=== PATIENT | female | born 1955 | race Caucasian/White ===

== ENCOUNTER 2017-10-26 15:38 | Emergency (ER) | payer BC, MEDICARE ==
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
--- NOTE | 2017-10-26 17:18 | RAD ---
HISTORY: Abdominal pain COMPARISONS: None VIEWS: 2: Frontal and lateral views of the chest. FINDINGS: CARDIOMEDIASTINAL SILHOUETTE: The cardiomediastinal silhouette is normal. CHARU: The charu are normal. PLEURA: The costophrenic angles are sharp. No pleural abnormalities are noted. LUNG PARENCHYMA: The lungs are clear. ABDOMEN: The upper abdomen is clear. There is no subphrenic gas. BONES AND SOFT TISSUES: Mild degenerative changes are noted. OTHER: None. IMPRESSION: NO ACTIVE CARDIOPULMONARY DISEASE.
--- NOTE | 2017-10-26 17:18 | RAD ---
HISTORY: Abdominal pain COMPARISONS: None VIEWS: Frontal views of the abdomen. FINDINGS: BOWEL: There is a nonobstructive bowel gas pattern. There is a large amount of stool within the colon. CALCULI: There are no abnormal calculi. BONES AND SOFT TISSUES: Mild degenerative changes are noted. OTHER FINDINGS: The lung bases are clear. There is no subphrenic gas. IMPRESSION: NONOBSTRUCTIVE BOWEL GAS PATTERN. LARGE AMOUNT OF STOOL WITHIN THE COLON.
--- NOTE | 2017-10-26 17:51 | RAD ---
CLINICAL HISTORY: Incarcerated umbilical and ventral hernia COMPARISON: Mammogram dated March 05, 2017, breast ultrasound dated March 24, 2017 TECHNIQUE: Multiple contiguous axial CT scans were obtained of the abdomen and pelvis, without intravenous contrast enhancement. Coronal and sagittal multiplanar reformations are submitted for review. Oral contrast was not administered. FINDINGS: The study is limited by the lack of intravenous contrast. This limits evaluation of the solid organs and vasculature. LUNG BASES: The lung bases are clear. LIVER: The liver is diffusely low in attenuation compared to the spleen. There are no focal hepatic parenchymal masses. BILE DUCTS: There is no intrahepatic or extrahepatic biliary dilatation. GALLBLADDER: There is a questionable 0.5 cm polyp of the fundus of the gallbladder. There is no pericholecystic inflammatory change. PANCREAS: The pancreas is normal, without mass or ductal dilatation. SPLEEN: Normal in size and appearance. UPPER GI TRACT: Evaluation of the gastrointestinal tract is limited by incomplete gastric distention. The upper GI tract is unremarkable. SMALL BOWEL AND MESENTERY: The small bowel is normal in contour, course, and caliber. There is no obstruction or dilatation. COLON: The colon is normal in contour, course, caliber. There is no pericolonic inflammatory change. ADRENALS: Normal bilaterally. KIDNEYS: The kidneys are normal in shape, size, contour, and axis. There is no hydronephrosis or nephrolithiasis. BLADDER: The bladder is incompletely distended but is grossly normal. PELVIC ORGANS: The uterus and adnexa are grossly normal for technique. AORTA: The aorta is normal. IVC: Unremarkable LYMPH NODES: There is no lymphadenopathy by size criteria. ABDOMINAL WALL: There is a large bilobed fat-containing umbilical hernia. There is mild inflammatory change surrounding the hernia sac. BONES AND SOFT TISSUES: Degenerative changes are noted of the spine and hips. There is a nodular density of the left breast that appears to correspond to the previously characterized cyst on the prior breast imaging. OTHER: None IMPRESSION: 1. LARGE BILOBED FAT-CONTAINING UMBILICAL HERNIA. 2. FATTY INFILTRATION OF LIVER. 3. QUESTIONABLE 0.5 CM GALLBLADDER WALL POLYP. RECOMMEND CORRELATION WITH DEDICATED IMAGING OF THE GALLBLADDER IN THE NONACUTE SETTING.
[2017-10-26 19:36] VITALS: BP 161/72
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
== END 2017-10-26 19:10 | disposition home or self-care (01) ==
LOC: ED 15:38
DX: S80.02XA Contusion of left knee, initial encounter (principal); K42.9 Umbilical hernia without obstruction or gangrene; V89.2XXA Person injured in unspecified motor-vehicle accident, traffic, initial encounter; I10 Essential (primary) hypertension; J45.909 Unspecified asthma, uncomplicated
CPT/HCPCS: 71046; 74019; 74176; 99282

== ENCOUNTER 2018-03-12 16:18 | Emergency (ER) | payer MEDICARE, BC ==
[2018-03-12 16:29] VITALS: BP 169/60
--- NOTE | 2018-03-12 16:48 | ED ---
Skin Complaint - HPI Summary HPI Summary: 62 y/o female presents to the urgent care c/o B/L forearms and left lower leg w / an itchy rash s/p getting into some weeds about 1 week ago. Pt states she has taking Benadryl PO and applied Hidrocortisone 1% topical cream to alleviate symptoms w/o any improvement. Pt states itchiness is worse today. Pt denies pain, fever, SOB, chest pain, throat tightening, abdominal pain, N/V/D. Pt also states she had a tick bite about 1 week ago in her RT lower leg, she remove it immediately and was not engorged. Now area has a little bit of redness and she thinks it is getting infected. - History of Current Complaint Chief Complaint: UCRash Time Seen by Provider: 03/12/18 16:38 Stated Complaint: SKIN RASH Hx Obtained From: Patient Onset/Duration: Started Weeks Ago, Still Present Skin Exposure Onset/Duration: Weeks Ago Timing: Constant Onset Severity: Moderate Current Severity: Moderate Pain Intensity: 0 Pain Scale Used: 0-10 Numeric Skin Location: Discrete - B/L fore arms, Leg - left lower leg rash like streaks , and RT lower leg tick bite Character: Pruritus, Hives, Redness Aggravating Symptom(s): Touch Alleviating Symptom(s): OTC Meds, Antihistamines Associated Signs & Symptoms: Rash Related History: Possible Reaction to: Insect - tick bite, Possible Reaction to : Environmental Exposure - weeds - Allergy/Home Medications Allergies/Adverse Reactions: Allergies Allergy/AdvReac Type Severity Reaction Status Date / Time acetaminophen [From Tylenol] Allergy Hives Verified 03/12/18 16:30 Opioids - Morphine Analogues Allergy Hives Verified 03/12/18 16:30 Opioids-Meperidine and Allergy Hives Verified 03/12/18 16:30 Related Opioids-Methadone and Related Allergy Hives Verified 03/12/18 16:30 Home Medications: Home Medications Levalbuterol 0.63MG/3ML NEB* [Xopenex 0.63MG/3ML NEB*] 1 dose INH Q6HR 03/12/18 [History Confirmed 03/12/18] PMH/Surg Hx/FS Hx/Imm Hx Previously Healthy: Yes Endocrine/Hematology History: Reports: Hx Diabetes Cardiovascular History: Reports: Hx Hypertension Respiratory History: Reports: Hx Asthma GI History: Denies: Hx Cirrhosis, Hx Ulcer - Surgical History Surgery Procedure, Year, and Place: Right ankle. TONSILECTOMY. RIGHT KNEE. LEFT ANKLE. TUBAL LIGATION. RIGHT ELBOW Infectious Disease History: No Infectious Disease History: Denies: Hx Clostridium Difficile, Hx Hepatitis, Hx Human Immunodeficiency Virus (HIV), Hx of Known/Suspected MRSA, Hx Shingles, Hx Tuberculosis, Hx Known/ Suspected VRE, Hx Known/Suspected VRSA, History Other Infectious Disease, Traveled Outside the [place] in Last 30 Days - Family History Known Family History: Positive: Cardiac Disease, Hypertension Family History: cancer - Social History Occupation: Retired Lives: With Family Alcohol Use: Rare Substance Use Type: Reports: None Smoking Status (MU): Never Smoked Tobacco Have You Smoked in the Last Year: No Review of Systems Constitutional: Negative Eyes: Negative ENT: Negative Cardiovascular: Negative Respiratory: Negative Gastrointestinal: Negative Genitourinary: Negative Musculoskeletal: Negative Positive: Rash - B/L forearms and left lower leg w/ itchy rash and RT lower leg w/ a tick bite Neurological: Negative Psychological: Normal All Other Systems Reviewed And Are Negative: Yes Physical Exam - Summary Physical Exam Summary: Vital Signs Reviewed: Yes General: well developed, well nourished obese female sitting in the examining table w/o any apparent distress. Eyes: Positive: Conjunctiva Clear - PERRLA, EOMI ENT: Positive: Normal ENT inspection, Hearing grossly normal, Pharynx normal, TMs normal Neck: Positive: Supple, Nontender, No Lymphadenopathy Respiratory: Positive: Chest nontender, Lungs clear, Normal breath sounds Cardiovascular: Positive: RRR, No Murmur, Pulses Normal Abdomen Description: Positive: Nontender, No Organomegaly, Soft. Negative: CVA Tenderness (R), CVA Tenderness (L) Bowel Sounds: Positive: Present Musculoskeletal: Positive: Strength Intact, ROM Intact, No Edema Neurological Exam: Normal Psychological Exam: Normal Skin: Positive: rashes - B/L forearms and left lower leg w/ scattered erythematous blisters and vesicles, particularly in linear streaks w/ mild signs of excoriation, no drainage observed, non tender to palpation. Distal medial aspect of RT lower leg w/ tick bite with surrounding erythema, non tender to palpation. tick no longer present, mild swelling, no drainage observed. Triage Information Reviewed: Yes Vital Signs On Initial Exam: Initial Vitals Temp Pulse Resp BP Pulse Ox 97.5 F 89 18 169/60 97 03/12/18 16:26 03/12/18 16:26 03/12/18 16:26 03/12/18 16:26 03/12/18 16:26 Diagnostics - Vital Signs Vital Signs Temp Pulse Resp BP Pulse Ox 03/12/18 16:26 97.5 F 89 18 169/60 97 - Laboratory Lab Statement: Any lab studies that have been ordered have been reviewed, and results considered in the medical decision making process. Course/Dx - Course Course Of Treatment: 62 y/o female presents to the urgent care c/o B/L forearms and left lower leg w/ an itchy rash s/p getting into some weeds about 1 week ago. Pt states she has taking Benadryl PO and applied Hidrocortisone 1% topical cream to alleviate symptoms w/o any improvement. Pt states itchiness is worse today. Pt denies pain, fever, SOB, chest pain, throat tightening, abdominal pain, N/V/D. Pt also states she had a tick bite about 1 week ago in her RT lower leg, she remove it immediately and was not engorged. Now area has a little bit of redness and she thinks it is getting infected. Hx obtained. Pt w / B/L forearms and left lower leg w/ scattered erythematous blisters and vesicles, particularly in linear streaks w/ mild signs of excoriation, no drainage observed, non tender to palpation. Distal medial aspect of RT lower leg w/ tick bite with surrounding erythema, non tender to palpation. tick no longer present, mild swelling on examination. Pt most likely w/ Posion mariya dermatitis and a tick bite getting infected. Pt given at the clinic Prednisone PO first dose. Pt Rx Prednisone PO, Clobetasol topical cream to alleviate poison mariya dermatitis. Also Rx Bacitracin to apply over the tick bite area. PT advised to continue w/ Benadryl PO for pruritus . Pt advised if not improvement or worsening of symptoms to return to the clinic or f/u with PCP for further treatment.Pt's BP is elevated today advised to decrease salt in diet, monitor BP and f/u with PCP for further management. PT understood and agreed with D/C instructions - Differential Diagnoses - Skin Complaint Differential Diagnoses: Abscess, Cellulitis, Local Allergic Reaction, MRSA, Poison Mariya, Poison [place] - Diagnoses Provider Diagnoses: Poison mariya dermatitis, Tick bite, Uncontrolled hypertension Discharge - Sign-Out/Discharge Documenting (check all that apply): Discharge/Admit/Transfer - D/C home - Discharge Plan Condition: Stable Disposition: HOME Prescriptions: Bacitracin OINTMENT* 1 applic TOPICAL BID #1 tube Clobetasol Propionate/Emoll [Clobetasol Propionate Emo] 0.05 % EX BID #1 cre predniSONE TAB* [Deltasone 20 MG TAB*] 20 mg PO DAILY #8 tab Patient Education Materials: Poison Mariya (ED), Low-Sodium Diet (ED) Referrals: Gianna Crocker MD [Primary Care Provider] - 3 Days Lucita Tapia [Medical Doctor] - If Needed Additional Instructions: 1-Please take Prednisone PO as directed starting tomorrow to alleviate symptoms. first dose given today 2-Please apply Clobetasone Topical medication as directed to alleviate rash and itchiness. 3- Continue taking Benadryl PO to alleviate itchiness 4-If symptoms do not improve or worsen please f/u with your PCP or [facility] for further evaluation and treatment. 5-Your BP is elevated today. please decrease salt in your diet, monitor BP and if it continues to be elevated please f/u with your PCP for further management - Billing Disposition and Condition Condition: STABLE Disposition: Home
[2018-03-12] MEDS ORDERED: predniSONE TAB* 20 MG PO ONE (16:50)
== END 2018-03-12 17:20 | disposition home or self-care (01) ==
LOC: UCEAST 16:18
DX: L23.7 Allergic contact dermatitis due to plants, except food (principal); I10 Essential (primary) hypertension; E11.9 Type 2 diabetes mellitus without complications; J45.909 Unspecified asthma, uncomplicated; Z88.6 Allergy status to analgesic agent; Z88.5 Allergy status to narcotic agent; Z82.49 Family history of ischemic heart disease and other diseases of the circulatory system; Z80.9 Family history of malignant neoplasm, unspecified
CPT/HCPCS: 99212; G0463; J7512

== ENCOUNTER 2018-07-10 11:22 | Emergency (ER) | payer MEDICARE, BC ==
[2018-07-10] MEDS ORDERED: Levalbuterol 1.25MG/0.5ML NEB INH ONE (11:25)
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
[2018-07-10] MEDS ORDERED: predniSONE TAB* 20 MG PO ONE (11:47)
[2018-07-10 12:27] VITALS: BP 150/81
== END 2018-07-10 12:26 | disposition home or self-care (01) ==
LOC: ED 11:22
DX: J45.901 Unspecified asthma with (acute) exacerbation (principal); Z88.6 Allergy status to analgesic agent; Z88.5 Allergy status to narcotic agent
CPT/HCPCS: 99282; A9270-GY; J7512